=== PATIENT | male | born 1940 | race Hispanic/Latino ===

== ENCOUNTER → 2024-08-28 | Outpatient (CLI) | payer OTHER ==
[~2024-08-28] MED LIST: ALPR0.5T8 PO; AMLOD PO; ASPI-1197 PO; CLOP75TA32 PO; ESOM40CA66 PO; LEVO100T12 PO; RAME8TAB8 PO; ROSU20TA23 PO; SITA50TA PO; TAMS0.4C32 PO; [UNRECOGNIZED DRUG - OTHER] PO
== END | disposition home or self-care (01) ==
LOC: LAB 10:38
PROVIDERS: ATTEND Internal Medicine Cardiovascular Disease
DX: I10 Essential (primary) hypertension (principal); I25.10 Atherosclerotic heart disease of native coronary artery without angina pectoris; R06.09 Other forms of dyspnea
CPT/HCPCS: 36415; 83880

== ENCOUNTER → 2024-09-05 | Outpatient (CLI) | payer OTHER, MEDICARE ==
--- NOTE | 2024-09-09 09:28 | HMCSR ---
APPROVED REPORT EXAM: Two-dimensional and M-mode echocardiogram with Doppler and color Doppler. INDICATION ICD: Other forms of dyspnea R06.09 2D Dimensions RVDd3.7 cmLVOT diam1.9 (1.8-2.4cm)LVED Vol(simp.)124.0 mL LVES Vol(simp.)38.4 mL LVEF(%, simp.)69 % LA ESV INDEX (4CH)29.30 mL/m2 LA ESV INDEX (2CH)43.60 mL/m2 M-Mode Dimensions EPSS0.7 cm LA (MM)4.5 (1.6-4.0cm) Ao Root(MM)2.7 (2.0-3.7cm) Aortic Valve AoV VTI0.4 mAo Mean GR8.0 mmHgLVOT VTI0.30 m ROBERTO (VMAX)2.0 cm2AVA (VTI) 2.0 cm2 Mitral Valve MV E Vmax80.0 cm/sDECEL Emlx711 ms MV A Vmax98.0 cm/sP 1/2 T103 ms E/A ratio0.8MVA (PHT)2.1 cm2 MR Max PG73 mmHg TDI E/E' Qgahcj83.1E/E' Lateral9.8 Medial E' Peak V5.30 cm/sLateral E' Peak V8.20 cm/s Pulmonary Valve PV VTI0.27 mPV Mean GR4 mmHg PI End Izabela. Juan Antonio 123.5 cm/s Tricuspid Valve TR Vmax2.5 m/s TR Peak GR25.3 mmHg Left Ventricle The left ventricle is normal size. There is normal LV segmental wall motion. There is normal left good tricular wall thickness. LVEF is 65-70%. Stage I diastolic dysfunction. Right Ventricle The right ventricle is normal size. The right ventricular systolic function is normal. Atria The left atrium is moderatey dilated. The right atrium is mildly dilated. Aortic Valve The aortic valve is tricuspid, mildly sclerotic. No aortic regurgitation is present. There is no aort ic valvular stenosis. Mitral Valve The mitral valve is normal in structure. Mitral regurgitation is mild. There is no mitral valve steno sis. Tricuspid Valve The tricuspid valve is normal in structure. There is trivial tricuspid valve regurgitation noted. Pulmonic Valve The pulmonary valve is normal in structure. There is trace pulmonic valvular regurgitation. Great Vessels The aortic root is normal in size. IVC is not well visualized. Pericardium There is no pericardial effusion. Other Information Quality : Fair Conclusion LVEF is 65-70%. Stage I diastolic dysfunction. The left atrium is moderatey dilated.
== END | disposition home or self-care (01) ==
LOC: RAH 13:17
PROVIDERS: ATTEND Internal Medicine Cardiovascular Disease
DX: I08.3 Combined rheumatic disorders of mitral, aortic and tricuspid valves (principal); R06.09 Other forms of dyspnea
CPT/HCPCS: 93306